=== PATIENT | male | born 1975 ===

== ENCOUNTER 2020-08-09 18:00 | Outpatient (CLI) | payer BC | END 2020-08-09 18:01 | disposition home or self-care (01) | LOC: SLEEPLAB 18:00 | PROVIDERS: ATTEND Family Medicine | DX: R06.83 Snoring (principal); R53.83 Other fatigue; R09.89 Other specified symptoms and signs involving the circulatory and respiratory systems; G47.00 Insomnia, unspecified | CPT/HCPCS: 95806 ==